=== PATIENT | male | born 1990 | race African-American/Black ===

== ENCOUNTER 2021-10-17 04:32 | Emergency (ER) | payer SELFPAY ==
[~2021-10-17] VITALS: Ht 177.8 cm; Wt 77.1 kg
--- NOTE | 2021-10-17 04:38 | PHYS DOC ---
Past History Past Medical History: Anxiety, Schizophrenia Smoking: Cigarettes Alcohol Use: Occasionally Drug Use: Amphetamine, Marijuana, Methamphetamine, Other General Adult HPI: HPI: ".. I.. Just.. just.. I.. I,.,. their after me... ".. " what.. what.. ".."I don't I don't know.. I .. I.. " Patient is a 31 year old male who presents with acute mental status change. Pt. change in mental status was called in by mother. Pt. found running down middle of road.. very confused, irrational, agitated. Pt. eventual evaluated by EMS. Pt. became combative and required 5 paramedics and police to restrain him . Pt. was given 5 mg of Versed. Pt. reportedly hx of schizophrenia. Pt. normally follows at [facility]. Pt. was last seen in our ED under Claudio Sexton D on 2019 for acute mental status change. . Pt obviously very confused agitated and appears to be hallucinating and having parnoid delusions . Pt. has hx delirium, polysubstance abuse, hypoglycemia. No history of recent lesly el. No specific ill contacts. No history immunosuppression. Review of Systems: Review of Systems: Constitutional: Denies fever or chills Eyes: Denies change in visual acuity HENT: Denies nasal congestion or sore throat Respiratory: Denies cough or shortness of breath Cardiovascular: Denies chest pain or edema GI: Denies abdominal pain, nausea, vomiting, bloody stools or diarrhea : Denies dysuria Musculoskeletal: Denies back pain or joint pain Integument: Denies rash Neurologic: Denies headache, focal weakness or sensory changes Endocrine: Denies polyuria or polydipsia Lymphatic: Denies swollen glands Psychiatric: reports anxiety, Family History: Family History: Currently not available Current Medications: Current Meds: See nursing for home meds Allergies: Allergies: No known drug allergies Physical Exam: PE: Constitutional: Well developed, well nourished, in acute mental distress, obvious confused and agitated HENT: Normocephalic, atraumatic, bilateral external ears normal, oropharynx moist, no oral exudates, nose normal. [] Eyes: PERRLA, EOMI, conjunctiva normal, no discharge. [] Neck: Normal range of motion, no tenderness, supple, no stridor. [] Cardiovascular: Tachycardia heart rate regular rhythm, no murmur [] Lungs & Thorax: Bilateral breath sounds equal apex on auscultation []. Few scattered wheezes Abdomen: Bowel sounds decreased, soft, no tenderness, no masses, no pulsatile masses. [] Skin: Warm, diaphoretic, no erythema, no rash. Multiple tattoos Back: No tenderness, no CVA tenderness. [] Extremities: No tenderness, no cyanosis, no clubbing, ROM intact, no edema. No cording appreciated Neurologic: Alert and oriented to his name only, moves all extremities on request, distal sensory, no focal deficits noted. [] Psychologic: Affect very agitated, judgement impaired,, delirium/delusions EKG: EKG: EKG pending at shift change [] Radiology/Procedures: Radiology/Procedures: CXR pending[] Heart Score: C/O Chest Pain: N/A Risk Factors: Risk Factors: DM, Current or recent (<one month) smoker, HTN, HLP, family history of CAD, obesity. Risk Scores: Score 0 - 3: 2.5% MACE over next 6 weeks - Discharge Home Score 4 - 6: 20.3% MACE over next 6 weeks - Admit for Clinical Observation Score 7 - 10: 72.7% MACE over next 6 weeks - Early Invasive Strategies Course & Med Decision Making: Course & Med Decision Making Pertinent Labs and Imaging studies reviewed. (See chart for details) Pt. mentation gradual improvement. Pt. still agitated at shift change. Pt. endorsed to Dr. Geiger at shift change. He will make disposition. Labs , CXR pending. Impression: 1. Acute Mental Status Change-delirium 2. Elevated CK 2845 [] Dragon Disclaimer: Dragon Disclaimer: This electronic medical record was generated, in whole or in part, using a voice recognition dictation system. Dragon Disclaimer This chart was dictated in whole or in part using Voice Recognition software in a busy, high-work load, and often noisy Emergency Department environment. It may contain unintended and wholly unrecognized errors or omissions. Dragon Disclaimer This chart was dictated in whole or in part using Voice Recognition software in a busy, high-work load, and often noisy Emergency Department environment. It may contain unintended and wholly unrecognized errors or omissions. Dragon Disclaimer This chart was dictated in whole or in part using Voice Recognition software in a busy, high-work load, and often noisy Emergency Department environment. It may contain unintended and wholly unrecognized errors or omissions. HE STOCK MD Oct 17, 2021 04:38
[2021-10-17] MEDS: OLANZapine 2.5 MG TABLET PO ONE (05:06)
[2021-10-17] MEDS: LORazepam 1 MG TABLET PO ONE (05:06)
[2021-10-17] MEDS: diphenhydrAMINE 50 MG/ML VIAL IVP ONE (05:07)
[2021-10-17] MEDS: IV RINGERS SOLUTION,LACTATED 1,000 ML IV SCH (05:10)
[2021-10-17 05:20] LABS: BASO % 0 % (0-3); EOS % 0 % (0-3); HEMATOCRIT 44.4 % (39.0-53.0); HEMOGLOBIN 15.1 g/dL (13.0-17.5); LYMPH % 10 % (24-48); MEAN CORPUSCULAR HEMOGLOBIN 33 pg (25-35); MEAN CORPUSCULAR HGB CONC 34 g/dL (31-37); MEAN CORPUSCULAR VOLUME 96 fL (79-100); MONO % 9 % (0-9); NEUT # 9.1 x10^3uL (1.8-7.7); NEUT % 82 % (31-73); PLATELET COUNT 191 x10^3/uL (140-400); RED BLOOD COUNT 4.63 x10^6/uL (4.30-5.70); RED CELL DISTRIBUTION WIDTH 13.5 % (11.5-14.5); WHITE BLOOD COUNT 11.1 x10^3/uL (4.0-11.0)
[2021-10-17 05:30] LABS: CALCIUM 9.6 mg/dL (8.5-10.1); CREATININE 1.6 mg/dL (0.7-1.3); GFR 60.5; POTASSIUM 3.7 mmol/L (3.5-5.1)
[2021-10-17 05:44] LABS: ALBUMIN 4.8 g/dL (3.4-5.0); DIRECT BILIRUBIN 0.3 mg/dL (0.0-0.2); MAGNESIUM 2.4 mg/dL (1.8-2.4); TOTAL BILIRUBIN 1.4 mg/dL (0.2-1.0); TOTAL PROTEIN 9.4 g/dL (6.4-8.2)
[2021-10-17] MEDS ORDERED: NICOTINE 21MG PATCH. TD ONE (06:26)
[2021-10-17] MEDS: NICOTINE 21MG PATCH. TD ONE (06:33)
--- NOTE | 2021-10-17 06:33 | RAD ---
AP chest x-ray HISTORY: Dyspnea. Shortness of breath. FINDINGS: Heart size normal. Mediastinal silhouette is normal. No pneumothorax, pulmonary opacities o r pleural effusions. Bones are unremarkable. IMPRESSION: No acute process. Electronically signed by: Adriel Rodriguez MD (10/17/2021 6:30 AM) [facility] [place]
[2021-10-17 07:04] LABS: AMPHETAMINE/METHAMPHETAMINE POS (NEG); BARBITURATES NEG (NEG); BENZODIAZEPINES POS (NEG); CANNABINOIDS POS (NEG); COCAINE NEG (NEG); METHADONE NEG (NEG); OPIATES NEG (NEG); PHENCYCLIDINE NEG (NEG)
[2021-10-17 07:12] LABS: BACTERIA,URINE 0 /HPF (0-FEW); CLARITY,URINE HAZY; COLOR,URINE YELLOW; GLUCOSE,URINE NEG (NEG); NITRITE,URINE NEG (NEG); SPERM,URINE PRESENT /HPF; SQUAMOUS EPITHELIAL CELL,UR FEW /LPF; UROBILINOGEN,URINE 0.2 mg/dL (0.2 mg/dL)
[2021-10-17 07:13] LABS: HYALINE CASTS, URINE FEW /HPF
--- NOTE | 2021-10-17 08:29 | EKG ---
[address] [address] Test Date: 2021-10-17 Test Time: 08:07:33 Pat Name: MARQUITA BALDERRAMA Department: Room: Gender: M Manufacturing Software Engineer: : 1990 Requested By: HE STOCK Order Number: [id number] Reading MD: Magno Caraballo Measurements Intervals [place] Rate: 118 P: -5 MI: 120 QRS: 51 QRSD: 74 T: 21 QT: 330 QTc: 465 Interpretive Statements SINUS TACHYCARDIA LEFT ATRIAL ABNORMALITY Electronically Signed On 10-17-2021 18:03:04 CDT by Magno Caraballo
--- NOTE | 2021-10-17 08:32 | PHYS DOC ---
Past History Past Medical History: Anxiety, Schizophrenia Past Surgical History: Other Smoking: Cigarettes Alcohol Use: Occasionally Drug Use: Amphetamine, Marijuana, Methamphetamine, Other General Adult EDM: Chief Complaint: MANIC BEHAVIOR HPI: HPI: Initial history and physical performed by Dr. Rodriguez. Please see his note for further details. Current Medications: Current Meds: Current Medications Medications (Trade) Dose Ordered Sig/Elijah Start Time Stop Time Status Last Admin Dose Admin Diphenhydramine HCl (Benadryl) 50 mg 1X ONCE 10/17/21 04:45 10/17/21 04:46 DC 10/17/21 05:07 50 MG Lactated Ringer's 1,000 ml @ 1,000 mls/hr Q1H 10/17/21 04:45 10/17/21 05:44 DC 10/17/21 05:10 1,000 MLS/HR Lorazepam (Ativan) 2 mg 1X ONCE 10/17/21 04:45 10/17/21 04:46 DC 10/17/21 05:06 2 MG Nicotine (Nicoderm Cq 21mg Patch) 1 patch 1X ONCE 10/17/21 06:30 10/17/21 06:31 DC 10/17/21 06:33 1 PATCH Olanzapine (ZyPREXA) 10 mg 1X ONCE 10/17/21 04:45 10/17/21 04:46 DC 10/17/21 05:06 10 MG Allergies: Allergies: Allergies Coded Allergies Type Severity Reaction Last Updated Verified No Known Drug Allergies 10/17/21 No Current Patient Data: Labs: Laboratory Tests Test 10/17/21 04:55 10/17/21 04:56 10/17/21 06:10 Glucose (Fingerstick) 88 mg/dL (70-99) White Blood Count 11.1 x10^3/uL (4.0-11.0) H Red Blood Count 4.63 x10^6/uL (4.30-5.70) Hemoglobin 15.1 g/dL (13.0-17.5) Hematocrit 44.4 % (39.0-53.0) Mean Corpuscular Volume 96 fL (79-100) Mean Corpuscular Hemoglobin 33 pg (25-35) Mean Corpuscular Hemoglobin Concent 34 g/dL (31-37) Red Cell Distribution Width 13.5 % (11.5-14.5) Platelet Count 191 x10^3/uL (140-400) Neutrophils (%) (Auto) 82 % (31-73) H Lymphocytes (%) (Auto) 10 % (24-48) L Monocytes (%) (Auto) 9 % (0-9) Eosinophils (%) (Auto) 0 % (0-3) Basophils (%) (Auto) 0 % (0-3) Neutrophils # (Auto) 9.1 x10^3uL (1.8-7.7) H Lymphocytes # (Auto) 1.0 x10^3/uL (1.0-4.8) Monocytes # (Auto) 1.0 x10^3/uL (0.0-1.1) Eosinophils # (Auto) 0.0 x10^3/uL (0.0-0.7) Basophils # (Auto) 0.0 x10^3/uL (0.0-0.2) Prothrombin Time 11.6 SEC (9.4-11.4) H Prothrombin Time INR 1.1 (0.9-1.1) Sodium Level 136 mmol/L (136-145) Potassium Level 3.7 mmol/L (3.5-5.1) Chloride Level 101 mmol/L (98-107) Carbon Dioxide Level 24 mmol/L (21-32) Anion Gap 11 (6-14) Blood Urea Nitrogen 22 mg/dL (8-26) Creatinine 1.6 mg/dL (0.7-1.3) H Estimated GFR (Cockcroft-Gault) 60.5 Glucose Level 94 mg/dL (70-99) Calcium Level 9.6 mg/dL (8.5-10.1) Magnesium Level 2.4 mg/dL (1.8-2.4) Total Bilirubin 1.4 mg/dL (0.2-1.0) H Direct Bilirubin 0.3 mg/dL (0.0-0.2) H Aspartate Amino Transferase (AST) 77 U/L (15-37) H Alanine Aminotransferase (ALT) 90 U/L (16-63) H Alkaline Phosphatase 54 U/L (46-116) Creatine Kinase 2845 U/L (39-308) H Troponin I High Sensitivity 27 ng/L (4-75) OO-Ucx-R-Type Natriuretic Peptide 166 pg/mL (0-124) H Total Protein 9.4 g/dL (6.4-8.2) H Albumin 4.8 g/dL (3.4-5.0) Lipase 67 U/L (73-393) L Ethyl Alcohol Level < 10 mg/dL (0-10) Urine Collection Type Unknown Urine Color Yellow Urine Clarity Hazy Urine pH 6.0 Urine Specific [place] >=1.030 Urine Protein 100 mg/dl (NEG-TRACE) Urine Glucose (UA) Neg mg/dL (NEG) Urine Ketones (Stick) Trace mg/dL (NEG) Urine Blood Trace (NEG) Urine Nitrite Neg (NEG) Urine Bilirubin Neg (NEG) Urine Urobilinogen Dipstick 0.2 mg/dL (0.2 mg/dL) Urine Leukocyte Esterase Neg (NEG) Urine RBC 6-10 /HPF (0-2) Urine WBC 5-10 /HPF (0-4) Urine Squamous Epithelial Cells Few /LPF Urine Bacteria 0 /HPF (0-FEW) Urine Hyaline Casts Few /HPF Urine Mucus Mod /LPF Urine Sperm Present /HPF Urine Opiates Screen Neg (NEG) Urine Methadone Screen Neg (NEG) Urine Barbiturates Neg (NEG) Urine Phencyclidine Screen Neg (NEG) Urine Amphetamine/Methamphetamine Pos (NEG) Urine Benzodiazepines Screen Pos (NEG) Urine Cocaine Screen Neg (NEG) Urine Cannabinoids Screen Pos (NEG) Urine Ethyl Alcohol Neg (NEG) Vital Signs: Vital Signs Date Time Temp Pulse Resp B/P (MAP) Pulse Ox O2 Delivery O2 Flow Rate FiO2 10/17/21 04:37 63 20 145/92 (109) Room Air EKG: EKG: Twelve-lead EKG shows a sinus rhythm. Rate of 118. TX, QRS and QT corrected intervals are within normal limits. No ST segment elevation or depression. [] Radiology/Procedures: Radiology/Procedures: [] Impressions: PATIENT: MARQUITA BALDERRAMA ACCOUNT: [id number] : 1990 LOCATION: ER AGE: 31 SEX: M EXAM STATUS: REG ER ORD. PHYSICIAN: HE RODRIGUEZ MD REASON: tachy, dyspnea.PT ALTERED, WOULD NOT REMOVE N[place]KL[place] PROCEDURE: PORTABLE CHEST 1V AP chest x-ray HISTORY: Dyspnea. Shortness of breath. FINDINGS: Heart size normal. Mediastinal silhouette is normal. No pneumothorax, pulmonary opacities or pleural effusions. Bones are unremarkable. IMPRESSION: No acute process. Electronically signed by: Leida Rodriguez MD (10/17/2021 6:30 AM) [facility] [place] DICTATED AND SIGNED BY: LEIDA RODRIGUEZ MD DATE: 10/17/21627 CC: HE RODRIGUEZ MD; PCP,UNKNOWN ~ Heart Score: C/O Chest Pain: No Risk Factors: Risk Factors: DM, Current or recent (<one month) smoker, HTN, HLP, family history of CAD, obesity. Risk Scores: Score 0 - 3: 2.5% MACE over next 6 weeks - Discharge Home Score 4 - 6: 20.3% MACE over next 6 weeks - Admit for Clinical Observation Score 7 - 10: 72.7% MACE over next 6 weeks - Early Invasive Strategies Course & Med Decision Making: Course & Med Decision Making Pertinent Labs and Imaging studies reviewed. (See chart for details) [] Is a 31-year-old male presents with agitation and disorganized thought process. On his work-up drug screen was positive for amphetamines, patient has a history of methamphetamine abuse in the past. He was given some Ativan and Zyprexa in the ED and has calm down quite a bit. He has been observed for 8 hours and assessed by our mental health professional. We believe he can be discharged safely back home under care of his mother. Patient can follow-up on outpatient basis for review of medications and such, he is stable for discharge at this time. Blade Disclaimer: Blade Disclaimer: This electronic medical record was generated, in whole or in part, using a voice recognition dictation system. Departure Departure: Impression: Primary Impression: Methamphetamine abuse Disposition: HOME / SELF CARE / HOMELESS Condition: STABLE Referrals: PCP,UNKNOWN (PCP) Patient Instructions: Methamphetamine Abuse, Complications LORENA FAUSTIN MD Oct 17, 2021 08:32
[2021-10-17 13:30] VITALS: BP 130/73
== END 2021-10-17 13:55 | disposition home or self-care (01) ==
LOC: ER 05:10
DX: R41.0 Disorientation, unspecified (principal); R74.8 Abnormal levels of other serum enzymes; F15.10 Other stimulant abuse, uncomplicated; F41.9 Anxiety disorder, unspecified; F20.9 Schizophrenia, unspecified; F17.210 Nicotine dependence, cigarettes, uncomplicated; F12.10 Cannabis abuse, uncomplicated; Z20.822 Contact with and (suspected) exposure to COVID-19
CPT/HCPCS: 36415; 71045; 80048; 80076; 80307; 81001; 82550; 82947; 83690; 83735; 83880; 84443; 84484; 85025; 85610; 87086; 93005; 96361; 96374; 99285; C9803; G0480; J1200; J7120; U0003